=== PATIENT | female | born 1945 | race Caucasian/White ===

== ENCOUNTER → 2023-06-11 | Outpatient (CLI) | payer MEDICARE ==
[2023-06-11 11:09] VITALS: BP 152/80; PULSE 55; RESP 16; TEMP 98.1
--- NOTE | 2023-06-11 13:11 | P.PAINPG ---
PQRS Measure Charge Sheet Comment: HISTORY OF PRESENT ILLNESS: 78 yr old female as a referral from Dr Welsh presents today w severe and chronic LBP secondary to DDD, spondylosis and facet arthropathy without myelopathy for evaluation. Pt states pain level is provoked at 6/10 in intensity, constant, localized in the lower lumbar spine, achy in character w shooting pain towards the BLEs. Pain is provoked by laying on her sides, standing from a sitting position. Pain is alleviated by PT x 3-4 wks in Mar 2023, chiropractic treatments in 2020 which were discontinued due to therapist recommendations, sitting, repositioning and rest. Oswestry axial pain score at 17 . PMH: OA, HTN, Hyperlipidemia, Vitamin D Deficiency, GERD PSH: Tonsillectomy, Appendectomy, Cardiac Stents SH: No tobacco use, Occasional ETOH use, No illicit drug use FH: Non contributory All: See list Meds: See list REVIEW OF ORGAN SYSTEMS: CONSTITUTIONAL: No fevers or chills. No recent weight loss. NEUROLOGICAL: + numbness and tingling along the distal extremities. No seizure disorders or headaches. MUSCULOSKELETAL: + pain PSYCHIATRIC: Denies current depression or suicidal thoughts. Physical Examinations : Constitutional : Cooperative , not in acute distress . Neurologic : Cranial nerve II to XII intact. No focal neurological deficits. Psychiatric : alert & oriented x 3. Matching mood & appropriate affect. Judgment & insight intact. Musculoskeletal : Cervical Spine Motor strength in the deltoid and biceps: Normal right side. Normal Left side Motor strength biceps and the wrist extensors: Normal right side . Normal left side Motor strength in the triceps muscle: Normal right side. Normal left side Deep tendon reflexes: Normal at the biceps. Normal at Brachioradialis. Normal at triceps Vertebral body tenderness to deep palpation over Cervical facet loading test: positive bilaterally Spurling test: positive bilaterally Neck distraction test: positive bilaterally Neisha sign: positive bilaterally Lumbar spine Motor strength lower extremities ,thigh and legs 5/5 Right side , 5/5 Left side Deep tendon reflexes : Normal Knee Jerk. Normal Ankle Jerk Vertebral body tenderness over L4 Pedroza Test positive Lumbar facet Loading Test: positive Right / positive Left Range of motion of the lumbar spine Flexion 30 degrees, extension 10 degrees Straight Leg Raise test: Left/ Right positive at 35 degrees Scotty test: positive right / positive left. Severe tenderness over the Sacroiliac joint on the Right / Left sides Juaquin test: positive bilaterally Seated flexion test: positive bilaterally. Sacral spine : Severe tenderness over the Sacroiliac joint: right side / left side Range of motion: Flexion of the lumbar spine <60 degrees Range of motion: Extension of the lumbar spine <20 degrees Gaenslen's Test positive Joey's Test positive Scotty test: positive right side / left side Thigh Thrust Test Sacral Thrust Test Imaging: MRI noncontrast of the lumbar spine from 04/16/23 reviewed Assessment/ Plan : Lumbar anterolisthesis Recommendation of JOSIE L4-L5 #1. May need a series of injections for optimal pain relief. Risks, benefits of procedure discussed and patient verbalized understanding. Admits to aspirin or anti- coagulant use or medical history of diabetes. Protocol for discontinuation/ continuation of medications krish procedure discussed. Minimal anesthesia provided, if clinically indicated, consisting of Versed and Fentanyl. All questions answered. I have spent greater than 30 minutes on patient care today. Dr Espinoza was available by phone for the evaluation of this patient. The time was used to review the medical records including relevant urine studies and Prescription history (MAPs), review of the available imaging, evaluation and examination of the patient, coordination of care with the medical staff and if applicable referring physicians, as well as creation of the medical record Controlled Substance Measures - Controlled Substance Measures Is patient prescribed a controlled substance at discharge?: No
== END ==
LOC: PNWHC3 10:21
PROVIDERS: ATTEND Specialist
DX: M51.15 Intervertebral disc disorders with radiculopathy, thoracolumbar region (principal); M43.16 Spondylolisthesis, lumbar region; M19.90 Unspecified osteoarthritis, unspecified site; I10 Essential (primary) hypertension; E78.5 Hyperlipidemia, unspecified; M54.50 Low back pain, unspecified; K21.9 Gastro-esophageal reflux disease without esophagitis; Z88.5 Allergy status to narcotic agent; Z79.82 Long term (current) use of aspirin; Z79.899 Other long term (current) drug therapy
CPT/HCPCS: 99211

== ENCOUNTER 2023-06-30 12:38 | Day surgery (SDC) | payer MEDICARE ==
[2023-06-29 13:52] VITALS: BMI 35.4
[2023-06-30] MEDS ORDERED: LACTATED RINGERS 1,000 ML IV SCH (13:09)
[2023-06-30 13:18] VITALS: TEMP 97
[2023-06-30 13:25] LABS: Glucose,Whole Blood 93 mg/dL (70-110)
[2023-06-30] MEDS ORDERED: IOPAMIDOL M200 10 ML VIAL ONE (13:30)
[2023-06-30] MEDS ORDERED: methylPREDNISolone ACETATE 40 MG/ML 1 ML VIAL ONE (13:30)
--- NOTE | 2023-06-30 13:36 | P.PCN ---
Date of Procedure: 06/30/23 Procedure(s) Performed: PREOPERATIVE DIAGNOSIS: 1- Lumbar Degenerative Disc Diseases 2-Lumbar spondylosis with Facet arthropathy without myelopathy. POSTOPERATIVE DIAGNOSIS: 1-lumbar degenerative disc disease. 2-lumbar spondylosis with facet arthropathy without myelopathy. PROCEDURE 1. Lumbar epidural steroid injection under fluoroscopic guidance at the L4-5 level. (Fluoroscopy imaging was available in radiology department) 2. Lumbar epidurogram. ANESTHESIA: Lidocaine 1% 3 and then only. EBL: Minimal PROCEDURE INDICATION: The patient with low back pain and radiculitis symptoms unresponsive to conservative treatment. Fluoroscopy was used to optimize visualization of the needle placement and to maximize safety. PROCEDURE DESCRIPTION / TECHNIQUE: The patient was seen and identified in the preoperative area. Risks, benefits, complications including but not limited to infections ,bleeding ,allergic reaction to the medications ,nerve damage and not complete pain releife , and alternatives were discussed with the patient. The patient agreed to proceed with the procedure and signed the consent, and vital signs were stable. Patient was taken to the OR and time out was completed. The patient was placed in the prone position on procedure table and a pillow was placed under the abdomen to reduce lumbar lordosis. The lumbosacral area was prepped and draped in the usual sterile fashion.ere closely monitored during the procedure. Vital signs was monitered during the entire procedure. Using anterior-posterior fluoroscopy, the L4-5 interlaminar space was identified and the skin over this site was marked and then infiltrated with 1% lidocaine subcutaneously. Subsequently, a 20-gauge Tuohy epidural needle was inserted and advanced toward the epidural space using the ``Loss of resistance technique and guided by AP and lateral fluoroscopy. The correct needle position in the epidural space was verified with the injection of 2 mL of the water soluble contrast dye Isovue 200 contrast and observing an excellent epidurogram with the epidural spread of the dye, after negative aspiration for blood and CSF and in the absence of paresthesias. Again after negative aspiration, a 6 ml mixture containing 40 mg of Depo-medrol ( Preservetive Free ), and 2 ml of preservative free Normal Saline, and 2 ml of preservative free lidocaine 1% solution was injected and a washout of epidurogram was seen. Needle was withdrawn intact, skin was cleansed, and bandages were applied. COMPLICATIONS: None DISPOSITION / PLANS: The patient was placed in a supine position and transferred to the recovery area in a stable condition for observation. There was no benedicto dence of lower extremity motor or sensory deficit after the procedure. Patient was discharged from the recovery room after meeting discharge criteria. Home discharge instructions were given to the patient by the staff. The patient was reexamined prior to discharge. The patient will schedule a follow up in the clinic in 2-4 weeks.
[2023-06-30 13:42] VITALS: PULSE 58; RESP 14
[2023-06-30 13:55] VITALS: BP 153/85
--- NOTE | 2023-06-30 19:53 | FL ---
Intraoperative/procedural fluoroscopic services were provided. Total fluoroscopy time is 3.1 seconds with a total of 2 submitted images to PACS. Please see the operative/procedural note for further deta ils. DAP: [id number] mGym2
== END 2023-06-30 14:10 | disposition home or self-care (01) ==
LOC: ORPAIN 12:38
PROVIDERS: ATTEND Specialist
DX: M51.16 Intervertebral disc disorders with radiculopathy, lumbar region (principal); M47.26 Other spondylosis with radiculopathy, lumbar region; Z88.5 Allergy status to narcotic agent; Z88.8 Allergy status to other drugs, medicaments and biological substances; Z88.6 Allergy status to analgesic agent; Z79.82 Long term (current) use of aspirin
CPT/HCPCS: 62323; J1030; Q9966

== ENCOUNTER → 2023-07-22 | Outpatient (CLI) | payer MEDICARE ==
[2023-07-22 10:32] VITALS: BP 115/76; PULSE 53; RESP 16
--- NOTE | 2023-07-22 14:41 | P.PAINPG ---
PQRS Measure Charge Sheet Comment: HISTORY OF PRESENT ILLNESS: 78 yr old female presents today w severe and chronic LBP secondary to DDD, spondylosis and facet arthropathy without myelopathy for evaluation s/p JOSIE L4- L5 #1. Pt states she experienced 10% pain relief x 3 days s/p procedure. Pt states pain level is provoked at 8/10 in intensity, constant, localized in the lower lumbar spine, achy in character w shooting pain towards the BLEs. Pain is provoked standing from a sitting position. Pain is alleviated by PT x 3-4 wks in Mar 2023, chiropractic treatments in 2020 which were discontinued due to therapist recommendations, medications, CBD topical, sitting, repositioning and rest. Oswestry axial pain score at 12. Interventional procedures include JOSIE L4-L5 x1 Medications include Tyl REVIEW OF ORGAN SYSTEMS: CONSTITUTIONAL: No fevers or chills. No recent weight loss. NEUROLOGICAL: + numbness and tingling along the distal extremities. No seizure disorders or headaches. MUSCULOSKELETAL: + pain PSYCHIATRIC: Denies current depression or suicidal thoughts. Physical Examinations : Constitutional : Cooperative , not in acute distress . Neurologic : Cranial nerve II to XII intact. No focal neurological deficits. Psychiatric : alert & oriented x 3. Matching mood & appropriate affect. Judgment & insight intact. Musculoskeletal : Cervical Spine Motor strength in the deltoid and biceps: Normal right side. Normal Left side Motor strength biceps and the wrist extensors: Normal right side . Normal left side Motor strength in the triceps muscle: Normal right side. Normal left side Deep tendon reflexes: Normal at the biceps. Normal at Brachioradialis. Normal at triceps Vertebral body tenderness to deep palpation over Cervical facet loading test: positive bilaterally Spurling test: positive bilaterally Neck distraction test: positive bilat erally Neisha sign: positive bilaterally Lumbar spine Motor strength lower extremities ,thigh and legs 5/5 Right side , 5/5 Left side Deep tendon reflexes : Normal Knee Jerk. Normal Ankle Jerk Vertebral body tenderness Pedroza Test positive Lumbar facet Loading Test: positive Right / positive Left over BL L4-L5, L5-S1 Range of motion of the lumbar spine Flexion 30 degrees, extension 10 degrees Straight Leg Raise test: Left/ Right positive at 35 degrees Scotty test: positive right / positive left. Severe tenderness over the Sacroiliac joint on the Right / Left sides Gaenslen test: positive bilaterally Seated flexion test: positive bilaterally. Sacral spine : Severe tenderness over the Sacroiliac joint: right side / left side Range of motion: Flexion of the lumbar spine <60 degrees Range of motion: Extension of the lumbar spine <20 degrees Gaenslen's Test positive Joey's Test positive Scotty test: positive right side / left side Thigh Thrust Test Sacral Thrust Test Imaging: MRI noncontrast of the lumbar spine from 04/16/23 reviewed Assessment/ Plan : Lumbar anterolisthesis Recommendation of BL MBB L4-L5, L5-S1 #1. May need a series of injections, up until RFA, for optimal pain relief. Risks, benefits of procedure discussed and p atient verbalized understanding. Admits to aspirin or anti- coagulant use or medical history of diabetes. Protocol for discontinuation/ continuation of medications krish procedure discussed. Minimal anesthesia provided, if clinically indicated, consisting of Versed and Fentanyl. All questions answered. I have spent greater than 30 minutes on patient care today. Dr Espinoza was available by phone for the evaluation of this patient. The time was used to review the medical records including relevant urine studies and Prescription history (MAPs), review of the available imaging, evaluation and examination of the patient, coordination of care with the medical staff and if applicable referring physicians, as well as creation of the medical record PQRS Narrative: Hx Alcohol Use (MH) No Home Medications: Ambulatory Orders Acetaminophen [Tylenol Extra Strength] 500 mg PO DIRECTED PRN 06/11/23 Aspirin [[place] Aspirin EC] 81 mg PO DAILY 06/11/23 Atorvastatin [Lipitor] 80 mg PO DAILY 06/11/23 Calcium Carbonate/Vitamin D3 [Caltrate 600 Plus D3 20 Mcg (800 Iu)] 1 each PO BID 06/11/23 Ezetimibe [Zetia] 10 mg PO DAILY 06/11/23 L.acidoph,Paracasei, B.lactis [Probiotic] 1 each PO DAILY 06/11/23 Losartan Potassium 100 mg PO DAILY 06/11/23 Metoprolol Tartrate [Lopressor] 100 mg PO BID 06/11/23 Omeprazole 20 mg PO BID 06/11/23 Potassium Chloride 10 meq PO DAILY 06/11/23 Ubidecarenone [Co Q-10] 100 mg PO BID 06/11/23 Zinc Gluconate [Zinc] 50 mg PO DAILY 06/11/23 diazePAM 10 mg PO HS PRN 06/11/23 hydroCHLOROthiazide 25 mg PO DAILY 06/11/23 Psyllium Husk [Metamucil] 0.4 gm PO DAILY 06/29/23 Controlled Substance Measures - Controlled Substance Measures Is patient prescribed a controlled substance at discharge?: No
== END ==
LOC: PNWHC3 09:56
PROVIDERS: ATTEND Specialist
DX: M43.16 Spondylolisthesis, lumbar region (principal); Z79.82 Long term (current) use of aspirin; Z88.5 Allergy status to narcotic agent; Z88.8 Allergy status to other drugs, medicaments and biological substances
CPT/HCPCS: 99211

== ENCOUNTER 2023-08-06 09:13 | Day surgery (SDC) | payer MEDICARE ==
[2023-08-03 11:59] VITALS: BMI 35.1
[~2023-08-06 09:13] MED LIST: LACTATED RINGERS 1,000 ML IV SCH
[2023-08-06] MEDS ORDERED: LACTATED RINGERS 1,000 ML IV ONE (09:47)
[2023-08-06 09:55] VITALS: TEMP 97.5
[2023-08-06 10:01] LABS: Glucose,Whole Blood 104 mg/dL (70-110)
[2023-08-06] MEDS ORDERED: ROPIVACAINE 5MG/ML 20ML VIAL ONE (10:39)
[2023-08-06] MEDS ORDERED: methylPREDNISolone ACETATE 40 MG/ML 1 ML VIAL ONE (10:39)
[2023-08-06] MEDS ORDERED: MIDAZOLAM 2 MG/2 ML VIAL ONE (10:39)
--- NOTE | 2023-08-06 10:53 | P.PCN ---
Date of Procedure: 08/06/23 Procedure(s) Performed: PREOPERATIVE DIAGNOSIS : 1- Lumbar spondylosis with Facet Arthropathy without myelopathy . 2- Lumber degenerative disc disease POSTOPERATIVE DIAGNOSIS: 1- Lumbar spondylosis with Facet Arthropathy without myelopathy . 2- Lumber degenerative disc disease PROCEDURE: Diagnostic bilateral L3 , L4 , and L5 medial branch block under fluoroscopy guidance(fluoroscopy images available in the radiology Department ) ( To target the facet joint between Bilateral L4- 5 , and L5-S1 )#1st ANESTHESIA:moderate sedation with intravenous Versed 1 mg . ( sedation start time 1039 ,end time 1050 ) EBL: Minimal COMPLICATION: None PROCEDURE INDICATION: Chronic low back pain secondary to Facet arthropathy unresponsive to conservative treatment. PROCEDURE DESCRIPTION: the patient was seen and identified in the preop holding area , risks and benefits and possible complications of the procedure and alternative were discussed with the patient, and the patient agreed to proceed with the procedure and signed the consent and vital signs monitored during the procedure and fluoroscopy was used to maximize the benefit and accuracy of the needle placement, and sedation was given to decrease patient anxiety, patient was taken to the procedure room and placed in prone position vital signs monitored in the back prepped with chlorhexidine X3 then under strict sterile technique using a right oblique fluoroscopy ,the junction of the transverse process and the superior articulating process of the right L3 , L4 , and L5 vertebra which corresponding to the fluoroscopy image of the eye of the Carlos dog on the block side for the medial branches and subsequently , after local infiltration of skin and subcu tissuies with Ropivacaine 0.5 % , one mL at each level ,then 22-gauge Quincke-type needles , 3 needle was used , each one of them placed at the junction of the base of the transverse process and the superior articular process at the appropriate level, and the needle was advanced until the periosteum contacted, needle placement confirmed with AP oblique and lateral view and after appropriate needle placement confirmed, and after negative aspiration for heme and CSF and there was no paresthesia 1-1/2 mL of Ropivacaine 0.5% mixed with 20 mg Depo-Medrol , then half mL injected at each level after negative aspiration the needle subsequently removed and the same procedure repeated for the left side at left side at L3 , L4 and L5 levels. At the end of the procedure and the needles removed and a bandage applied after the skin was cleaned the cleaning solution patient taken to recovery room in stable condition and monitors in the recovery room for 20-30 minutes and discharged home in stable condition after discharge criteria met and patient sara l follow up with the pain clinic in 2-4 weeks
[2023-08-06] MEDS ORDERED: IV FLUID CONTINUATION 400 ML IV ONE (10:56)
[2023-08-06 11:17] VITALS: RESP 16
[2023-08-06 11:38] VITALS: BP 123/61; PULSE 55
--- NOTE | 2023-08-06 11:54 | FL ---
Intraoperative/procedural fluoroscopic services were provided. Total fluoroscopy time is 14.1 seconds with a total of 4 submitted images to PACS. Please see the operative/procedural note for further det ails. DAP: [id number] mGym2
== END 2023-08-06 11:32 | disposition home or self-care (01) ==
LOC: ORPAIN 09:13
PROVIDERS: ATTEND Specialist
DX: M47.816 Spondylosis without myelopathy or radiculopathy, lumbar region (principal); M51.36 Other intervertebral disc degeneration, lumbar region; G89.29 Other chronic pain; Z88.5 Allergy status to narcotic agent; Z88.8 Allergy status to other drugs, medicaments and biological substances
CPT/HCPCS: 64494 ×2; 64493; J2250; J1030; J2795; 99152

== ENCOUNTER → 2023-08-26 | Outpatient (CLI) | payer MEDICARE ==
[2023-08-26 09:50] VITALS: BP 160/76; PULSE 52; RESP 16; TEMP 98
--- NOTE | 2023-08-26 14:54 | P.PAINPG ---
PQRS Measure Charge Sheet Comment: HISTORY OF PRESENT ILLNESS: 78 yr old female presents today w severe and chronic LBP secondary to DDD, spondylosis and facet arthropathy without myelopathy for evaluation s/p BL MBB L4-L5, L5-S1 #1. Pt states she experienced 98 % pain relief x 5 days s/p procedure. Pt states pain level is provoked at 8/10 in intensity, constant, predominantly axial, localized in the lower lumbar spine, achy in character w shooting pain towards the BL hips, L knee and R knee/ ankle. Pain is provoked standing from a sitting position. Pain is alleviated by PT x 3-4 wks in Mar 2023, chiropractic treatments in 2020 which were discontinued due to therapist recommendations, medications, CBD topical, sitting, repositioning and rest. Oswestry axial pain score at 12. Interventional procedures include JOISE L4-L5 x1, BL MBB L3-L5 x1 Medications include Tyl REVIEW OF ORGAN SYSTEMS: CONSTITUTIONAL: No fevers or chills. No recent weight loss. NEUROLOGICAL: + numbness and tingling along the distal extremities. No seizure disorders or headaches. MUSCULOSKELETAL: + pain PSYCHIATRIC: Denies current depression or suicidal thoughts. Physical Examinations : Constitutional : Cooperative , not in acute distress . Neurologic : Cranial nerve II to XII intact. No focal neurological deficits. Psychiatric : alert & oriented x 3. Matching mood & appropriate affect. Judgment & insight intact. Musculoskeletal : Cervical Spine Motor strength in the deltoid and biceps: Normal right side. Normal Left side Motor strength biceps and the wrist extensors: Normal right side . Normal left side Motor strength in the triceps muscle: Normal right side. Normal left side Deep tendon reflexes: Normal at the biceps. Normal at Brachioradialis. Normal at triceps Vertebral body tenderness to deep palpation over Cervical facet loading test: positive bilaterally Spurling test: positive bilaterally Neck distraction test: positive bilaterally Neisha sign: positive bilaterally Lumbar spine Motor strength lower extremities ,thigh and legs 5/5 Right side , 5/5 Left side Deep tendon reflexes : Normal Knee Jerk. Normal Ankle Jerk Vertebral body tenderness Pedroza Test positive Lumbar facet Loading Test: positive Right / positive Left over BL L4-L5, L5-S1 Range of motion of the lumbar spine Flexion 30 degrees, extension 10 degrees Straight Leg Raise test: Left/ Right positive at 35 degrees Scotty test: positive right / positive left. Severe tenderness over the Sacroiliac joint on the Right / Left sides Gaenslen test: positive bilaterally Seated flexion test: positive bilaterally. Sacral spine : Severe tenderness over the Sacroiliac joint: right side / left side Range of motion: Flexion of the lumbar spine <60 degrees Range of motion: Extension of the lumbar spine <20 degrees Gaenslen's Test positive Joey's Test positive Scotty test: positive right side / left side Thigh Thrust Test Sacral Thrust Test Imaging: MRI noncontrast of the lumbar spine from 04/16/23 reviewed Assessment/ Plan : Lumbar anterolisthesis Recommendation of BL MBB L4-L5, L5-S1 #2. May need a series of injections, up until RFA, for optimal pain relief. Risks, benefits of procedure discussed and patient verbalized understanding. Admits to aspirin or anti- coagulant use or medical history of diabetes. Protocol for discontinuation/ continuation of medications krish procedure discussed. Minimal anesthesia provided, if clinically indicated, consisting of Versed and Fentanyl. All questions answered. I have spent greater than 30 minutes on patient care today. Dr Espinoza was available by phone for the evaluation of this patient. The time was used to review the medical records including relevant urine studies and Prescription history (MAPs), review of the available imaging, evaluation and examination of the patient, coordination of care with the medical staff and if applicable referring physicians, as well as creation of the medical record PQRS Narrative: Hx Alcohol Use (MH) No Home Medications: Ambulatory Orders Acetaminophen [Tylenol Extra Strength] 500 mg PO DIRECTED PRN 06/11/23 Aspirin [[place] Aspirin EC] 81 mg PO DAILY 06/11/23 Atorvastatin [Lipitor] 80 mg PO DAILY 06/11/23 Calcium Carbonate/Vitamin D3 [Caltrate 600 Plus D3 20 Mcg (800 Iu)] 1 each PO BID 06/11/23 Ezetimibe [Zetia] 10 mg PO DAILY 06/11/23 L.acidoph,Paracasei, B.lactis [Probiotic] 1 each PO DAILY 06/11/23 Losartan Potassium 100 mg PO DAILY 06/11/23 Metoprolol Tartrate [Lopressor] 100 mg PO BID 06/11/23 Potassium Chloride 10 meq PO DAILY 06/11/23 Ubidecarenone [Co Q-10] 100 mg PO BID 06/11/23 Zinc Gluconate [Zinc] 50 mg PO DAILY 06/11/23 diazePAM 10 mg PO HS PRN 06/11/23 hydroCHLOROthiazide 25 mg PO DAILY 06/11/23 Psyllium Husk [Metamucil] 0.4 gm PO DAILY 06/29/23 Esomeprazole Magnesium [NexIUM] 40 mg PO DAILY 08/03/23 Controlled Substance Measures - Controlled Substance Measures Is patient prescribed a controlled substance at discharge?: No
== END ==
LOC: PNWHC3 09:06
PROVIDERS: ATTEND Specialist
DX: M43.16 Spondylolisthesis, lumbar region (principal); Z79.82 Long term (current) use of aspirin; Z88.5 Allergy status to narcotic agent; Z88.8 Allergy status to other drugs, medicaments and biological substances
CPT/HCPCS: 99211

== ENCOUNTER 2023-09-17 10:53 | Day surgery (SDC) | payer MEDICARE ==
[2023-09-14 11:28] VITALS: BMI 35.4
[2023-09-17 11:31] VITALS: RESP 16; TEMP 98.5
[2023-09-17 11:33] LABS: Glucose,Whole Blood 105 mg/dL (70-110)
[2023-09-17] MEDS ORDERED: methylPREDNISolone ACETATE 40 MG/ML 1 ML VIAL ONE (12:03)
[2023-09-17] MEDS ORDERED: MIDAZOLAM 2 MG/2 ML VIAL ONE (12:03)
[2023-09-17] MEDS ORDERED: ROPIVACAINE 5MG/ML 20ML VIAL ONE (12:03)
--- NOTE | 2023-09-17 12:25 | P.PCN ---
Date of Procedure: 09/17/23 Procedure(s) Performed: PREOPERATIVE DIAGNOSIS : 1- Lumbar spondylosis with Facet Arthropathy without myelopathy . 2- Lumber degenerative disc disease POSTOPERATIVE DIAGNOSIS: 1- Lumbar spondylosis with Facet Arthropathy without myelopathy . 2- Lumber degenerative disc disease PROCEDURE: Diagnostic bilateral L3 , L4 , and L5 medial branch block under fluoroscopy guidance(fluoroscopy images available in the radiology Department ) ( To target the facet joint between Bilateral L4- 5 , and L5-S1 )#2nd ANESTHESIA:moderate sedation with intravenous Versed 2 mg . ( sedation start time 12:09 ,end time 12:22 ) EBL: Minimal COMPLICATION: None PROCEDURE INDICATION: Chronic low back pain secondary to Facet arthropathy unresponsive to conservative treatment. PROCEDURE DESCRIPTION: the patient was seen and identified in the preop holding area , risks and benefits and possible complications of the procedure and alternative were discussed with the patient, and the patient agreed to proceed with the procedure and signed the consent and vital signs monitored during the procedure and fluoroscopy was used to maximize the benefit and accuracy of the needle placement, and sedation was given to decrease patient anxiety, patient was taken to the procedure room and placed in prone position vital signs monitored in the back prepped with chlorhexidine X3 then under strict sterile technique using a right oblique fluoroscopy ,the junction of the transverse process and the superior articulating process of the right L3 , L4 , and L5 vertebra which corresponding to the fluoroscopy image of the eye of the Carlos dog on the block side for the medial branches and subsequently , after local infiltration of skin and subcu tissuies with Ropivacaine 0.5 % , one mL at each level ,then 22-gauge Quincke-type needles , 3 needle was used , each one of them placed at the junction of the base of the transverse process and the superior articular process at the appropriate level, and the needle was advanced until the periosteum contacted, needle placement confirmed with AP oblique and lateral view and after appropriate needle placement confirmed, and after negative aspiration for heme and CSF and there was no paresthesia 1-1/2 mL of Ropivacaine 0.5% mixed with 20 mg Depo-Medrol , then half mL injected at each level after negative aspiration the needle subsequently removed and the same procedure repeated for the left side at left side at L3 , L4 and L5 levels. At the end of the procedure and the needles removed and a bandage applied after the skin was cleaned the cleaning solution patient taken to recovery room in stable condition and monitors in the recovery room for 20-30 minutes and discharged home in stable condition after discharge criteria met and patient will follow up with the pain clinic in 2-4 weeks
[2023-09-17] MEDS ORDERED: IV FLUID CONTINUATION 700 ML IV ONE (12:30)
--- NOTE | 2023-09-17 13:01 | FL ---
Fluoroscopy History: FACET BILATERAL LUMBAR FACETS, 3 LEVELS, 9 SEC, .[id number] DAP
[2023-09-17 13:03] VITALS: BP 140/50; PULSE 61
== END 2023-09-17 13:09 | disposition home or self-care (01) ==
LOC: ORPAIN 10:53
PROVIDERS: ATTEND Specialist
DX: M51.36 Other intervertebral disc degeneration, lumbar region (principal); M47.816 Spondylosis without myelopathy or radiculopathy, lumbar region; G89.29 Other chronic pain; E11.9 Type 2 diabetes mellitus without complications; Z79.82 Long term (current) use of aspirin; Z88.5 Allergy status to narcotic agent
CPT/HCPCS: 64493; 64494 ×2; 99152; J2250; J1030; J2795

== ENCOUNTER → 2023-10-21 | Outpatient (CLI) | payer MEDICARE ==
[2023-10-21 10:56] VITALS: BP 134/76; PULSE 51; RESP 14; TEMP 97.6
--- NOTE | 2023-10-21 14:27 | P.PAINPG ---
PQRS Measure Charge Sheet Comment: HISTORY OF PRESENT ILLNESS: A 78 yr old female presents today w severe and chronic LBP secondary to DDD, spondylosis and facet arthropathy without myelopathy for evaluation s/p BL MBB L4-L5, L5-S1 #2. Pt states she experienced 80% pain relief x 2 wks s/p procedure. Pt states pain level is provoked at 8/10 in intensity, constant, predominantly axial, localized in the lower lumbar spine, achy in character w occasional shooting pain towards the BL hips, L knee and R knee/ ankle. Pain is provoked standing from a sitting position. Pain is alleviated by PT x 3-4 wks in Mar 2023, chiropractic treatments in 2020 which were discontinued due to therapist recommendations, injections, medications, CBD topical, sitting, repositioning and rest. Oswestry axial pain score at 11. Interventional procedures include JOSIE L4-L5 x1, BL MBB L3-L5 x2 Medications include Tyl REVIEW OF ORGAN SYSTEMS: CONSTITUTIONAL: No fevers or chills. No recent weight loss. NEUROLOGICAL: + numbness and tingling along the distal extremities. No seizure disorders or headaches. MUSCULOSKELETAL: + pain PSYCHIATRIC: Denies current depression or suicidal thoughts. Physical Examinations : Constitutional : Cooperative , not in acute distress . Neurologic : Cranial nerve II to XII intact. No focal neurological deficits. Psychiatric : alert & oriented x 3. Matching mood & appropriate affect. Judgment & insight intact. Musculoskeletal : Cervical Spine Motor strength in the deltoid and biceps: Normal right side. Normal Left side Motor strength biceps and the wrist extensors: Normal right side . Normal left side Motor strength in the triceps muscle: Normal right side. Normal left side Deep tendon reflexes: Normal at the biceps. Normal at Brachioradialis. Normal at triceps Vertebral body tenderness to deep palpation over Cervical facet loading test: positive bilaterally Spurling test: positive bilaterally Neck distraction test: positive bilaterally Neisha sign: positive bilaterally Lumbar spine Motor strength lower extremities ,thigh and legs 5/5 Right side , 5/5 Left side Deep tendon reflexes : Normal Knee Jerk. Normal Ankle Jerk Vertebral body tenderness Pedroza Test positive Lumbar facet Loading Test: positive Right / positive Left over BL L4-L5, L5-S1 Range of motion of the lumbar spine Flexion 30 degrees, extension 10 degrees Straight Leg Raise test: Left/ Right positive at 35 degrees Scotty test: positive right / positive left. Severe tenderness over the Sacroiliac joint on the Right / Left sides Gaenslen test: positive bilaterally Seated flexion test: positive bilaterally. Sacral spine : Severe tenderness over the Sacroiliac joint: right side / left side Range of motion: Flexion of the lumbar spine <60 degrees Range of motion: Extension of the lumbar spine <20 degrees Gaenslen's Test positive Joey's Test positive Scotty test: positive right side / left side Thigh Thrust Test Sacral Thrust Test Imaging: MRI noncontrast of the lumbar spine from 04/16/23 reviewed Assessment/ Plan : Lumbar anterolisthesis Recommendation of BL RFA L4-L5, L5-S1. Exhibited optimal pain relief w prior MBB procedures. Risks, benefits of procedure discussed and patient verbalized understanding. Admits to aspirin or anti- coagulant use or medical history of diabetes. Protocol for discontinuation/ continuation of medications krish procedure discussed. Minimal anesthesia provided, if clinically indicated, consisting of Versed and Fentanyl. All questions answered. I have spent greater than 30 minutes on patient care today. Dr Espinoza was available by phone for the evaluation of this patient. The time was used to review the medical records including relevant urine studies and Prescription history (MAPs), review of the available imaging, evaluation and examination of the patient, coordination of care with the medical staff and if applicable referring physicians, as well as creation of the medical record PQRS Narrative: Hx Alcohol Use (MH) No Home Medications: Ambulatory Orders Acetaminophen [Tylenol Extra Strength] 500 mg PO DIRECTED PRN 06/11/23 Aspirin [[place] Aspirin EC] 81 mg PO DAILY 06/11/23 Atorvastatin [Lipitor] 80 mg PO DAILY 06/11/23 Calcium Carbonate/Vitamin D3 [Caltrate 600 Plus D3 20 Mcg (800 Iu)] 1 each PO BID 06/11/23 Ezetimibe [Zetia] 10 mg PO DAILY 06/11/23 L.acidoph,Paracasei, B.lactis [Probiotic] 1 each PO DAILY 06/11/23 Losartan Potassium 100 mg PO DAILY 06/11/23 Metoprolol Tartrate [Lopressor] 100 mg PO BID 06/11/23 Potassium Chloride 10 meq PO DAILY 06/11/23 Ubidecarenone [Co Q-10] 100 mg PO DAILY 06/11/23 Zinc Gluconate [Zinc] 50 mg PO DAILY 06/11/23 diazePAM 10 mg PO DIRECTED PRN 06/11/23 hydroCHLOROthiazide 25 mg PO DAILY 06/11/23 Omeprazole 20 mg PO DAILY 09/14/23 Controlled Substance Measures - Controlled Substance Measures Is patient prescribed a controlled substance at discharge?: No
== END ==
LOC: PNWHC3 09:17
PROVIDERS: ATTEND Specialist
DX: M43.17 Spondylolisthesis, lumbosacral region (principal); Z88.5 Allergy status to narcotic agent; Z79.82 Long term (current) use of aspirin
CPT/HCPCS: 99211

== ENCOUNTER 2023-11-13 08:09 | Day surgery (SDC) | payer MEDICARE ==
[2023-11-13 08:40] VITALS: RESP 16; TEMP 97.3
[2023-11-13 08:45] LABS: Glucose,Whole Blood 112 mg/dL (70-110)
[2023-11-13] MEDS ORDERED: MIDAZOLAM 2 MG/2 ML VIAL ONE (09:47)
[2023-11-13] MEDS ORDERED: ROPIVACAINE 5MG/ML 20ML VIAL ONE (09:51)
--- NOTE | 2023-11-13 10:37 | P.PCN ---
Description of Procedure: Preprocedure diagnosis. 1. Lumbar spondylosis with facet joint arthropathy without myelopathy. 2. Lumbar degenerative disc disease. Procedure diagnosis. 1. Lumbar spondylosis with facet joint arthropathy without myelopathy. Space 2. Lumbar degenerative disc disease. Procedure.Bilateral radiofrequency thermocoagulation L3, L4 and L5 medial branch, with fluoroscopic guidance (fluoroscopy images are available in the radiology department) (to Denervate the facet joint at bilateral L4 5 and L5-S1 levels) Anesthesia. Monitored anesthesia care as per anesthesia department, In OR, continuous pulse ox, blood pressure, EKG and verbal communication was maintained. EBL minimal. Procedure indication. The patient with low back pain secondary to lumbar facet arthropathy who he had more than 50% relief of her pain with previous diagnostic lumbar medial branch block with local anesthetics. Discussed with the patient about the procedure, alternative treatment, possible complications which may include infection, bleeding, nerve damage, aggravation of pain, all of which could be permanent. Patient understands, all questions were answered. Patient signed consent and agreed to proceed with the procedure. Procedure description/technique. After getting consent, patient was taken to the OR and in prone position. The lumbar area was prepped and draped in the usual sterile fashion. After injecting 5 mL of plain 1% lidocaine subcutaneously, a 18-gauge 100 mm radiofrequency cannula with a 10 mm active tip was introduced under tunnel vision of the fluoroscope at the junction of the superior articular process with RIGHT ala of the sacrum. With slight oblique fluoroscope, after injecting 5 mL of plain 1% lidocaine subcutaneously, a 18- gauge 100 mm radiofrequency cannula with a 10 mm active tip was introduced under tunnel vision of the fluoroscope at the junction of the superior articular process with L5 transverse process and junction of the superior articular process with the L4 transverse process Each site then underwent sensory testing with 50 Hz and 0-1 V and motor testing at 2.5 Hz and 0-3 V with local stimulation but no radicular symptoms down the leg. Thereafter each sites underwent radiofrequency thermocoagulation at 80C for 90 seconds after injecting 1 mL of preservative-free 0.5% ropivacaine. Repeat radiofrequency ablation was done at each points after rotating the needle 180 with same setting . In exactly same way, LEFT sided RFA were done at the following 3 points. Junction of the superior articular process with left ala of the sacrum, junction of the superior articular process with the left L5 transverse process, junction of the superior articular process with left L4 transverse process after needle position confirmation by AP, oblique, lateral view of the fluoroscope, negative CSF negative blood negative paresthesia, sensory and motor stimulations followed by injection of 1 mL of 0.5% ropivacaine. Radiofrequency ablation settings where same as the other side, and second lesion was done after rotating the needle 180. RF needles were taken out. At the end of the procedure the skin was cleansed and Band-Aids were applied. Disposition . Patient tolerated the procedure well. No complication. She was placed in supine position and transferred to the recovery area in stable condition for observation and was discharged home from recovery room after meeting discharge criteria. Discharge instructions given to the patient by the staff. The patient were examined prior to discharge the patient will schedule a follow-up in the clinic in 2-4 weeks.
[2023-11-13] MEDS ORDERED: IV FLUID CONTINUATION 1,000 ML IV ONE (10:39)
[2023-11-13 11:20] VITALS: BP 141/73; PULSE 68
--- NOTE | 2023-11-13 11:20 | FL ---
EXAMINATION TYPE: FL guided pain mgmt statistic Intraoperative/procedural fluoroscopic services were provided. Total fluoroscopy time is 1 minute 14 seconds with a total of 4 submitted images to PACS. P keaton see the operative/procedural note for further details. DAP: 0.29936 Gycm2
== END 2023-11-13 11:10 | disposition home or self-care (01) ==
LOC: ORPAIN 08:09
PROVIDERS: ATTEND Pain Medicine Interventional Pain Medicine
DX: M47.816 Spondylosis without myelopathy or radiculopathy, lumbar region (principal); M51.36 Other intervertebral disc degeneration, lumbar region; I10 Essential (primary) hypertension; E78.5 Hyperlipidemia, unspecified; I25.10 Atherosclerotic heart disease of native coronary artery without angina pectoris; I25.2 Old myocardial infarction; G47.33 Obstructive sleep apnea (adult) (pediatric); E11.9 Type 2 diabetes mellitus without complications; M19.90 Unspecified osteoarthritis, unspecified site; K21.9 Gastro-esophageal reflux disease without esophagitis; Z95.5 Presence of coronary angioplasty implant and graft; Z79.82 Long term (current) use of aspirin; Z79.899 Other long term (current) drug therapy
CPT/HCPCS: 64635; 64636 ×2; J2250; J2795

== ENCOUNTER → 2023-12-09 | Outpatient (CLI) | payer MEDICARE ==
[2023-12-09 14:11] VITALS: BP 132/66; PULSE 99; RESP 15; TEMP 98.5
--- NOTE | 2023-12-09 14:50 | P.PAINPG ---
PQRS Measure Charge Sheet Comment: HISTORY OF PRESENT ILLNESS: A 78 yr old female presents today w severe and chronic LBP secondary to DDD, spondylosis and facet arthropathy without myelopathy for evaluation s/p BL RFA L4-L5, L5-S1. Pt states she experienced 75 % pain relief s/p procedure. Pt states pain level is provoked at 4/10 in intensity, constant, predominantly axial, localized in the lower lumbar spine, achy in character w occasional shooting pain towards the BL hips, L knee and R knee/ ankle. Pain is provoked standing from a sitting position. Pain is alleviated by PT x 3-4 wks in Mar 2023, chiropractic treatments in 2020 which were discontinued due to therapist recommendations, injections, medications, CBD topical, sitting, repositioning and rest. Oswestry axial pain score at 9. Interventional procedures include JOSIE L4-L5 x1, BL RFA L3-L5 (Oct 2023) Medications include Tyl REVIEW OF ORGAN SYSTEMS: CONSTITUTIONAL: No fevers or chills. No recent weight loss. NEUROLOGICAL: + numbness and tingling along the distal extremities. No seizure disorders or headaches. MUSCULOSKELETAL: + pain PSYCHIATRIC: Denies current depression or suicidal thoughts. Physical Examinations : Constitutional : Cooperative , not in acute distress . Neurologic : Cranial nerve II to XII intact. No focal neurological deficits. Psychiatric : alert & oriented x 3. Matching mood & appropriate affect. Judgment & insight intact. Musculoskeletal : Cervical Spine Motor strength in the deltoid and biceps: Normal right side. Normal Left side Motor strength biceps and the wrist extensors: Normal right side . Normal left side Motor strength in the triceps muscle: Normal right side. Normal left side Deep tendon reflexes: Normal at the biceps. Normal at Brachioradialis. Normal at triceps Vertebral body tenderness to deep palpation over Cervical facet loading test: positive bilaterally Spurling test: positive bilaterally Neck distraction test: positive bilaterally Neisha sign: positive bilaterally Lumbar spine Motor strength lower extremities ,thigh and legs 5/5 Right side , 5/5 Left side Deep tendon reflexes : Normal Knee Jerk. Normal Ankle Jerk Vertebral body tenderness Pedroza Test positive Lumbar facet Loading Test: positive Right / positive Left Range of motion of the lumbar spine Flexion 30 degrees, extension 10 degrees Straight Leg Raise test: Left/ Right positive at 35 degrees Scotty test: positive right / positive left. Severe tenderness over the Sacroiliac joint on the Right / Left sides Gaenslen test: positive bilaterally Seated flexion test: positive bilaterally. Sacral spine : Severe tenderness over the Sacroiliac joint: right side / left side Range of motion: Flexion of the lumbar spine <60 degrees Range of motion: Extension of the lumbar spine <20 degrees Gaenslen's Test positive Joey's Test positive Scotty test: positive right side / left side Thigh Thrust Test Sacral Thrust Test Imaging: MRI noncontrast of the lumbar spine from 04/16/23 reviewed Assessment/ Plan : Lumbar anterolisthesis Will manage residual pain and may RTC on an as needed basis. All questions answered. I have spent greater than 30 minutes on patient care today. Dr Espinoza was available by phone for the evaluation of this patient. The time was used to review the medical records including relevant urine studies and Prescription history (MAPs), review of the available imaging, evaluation and examination of the patient, coordination of care with the medical staff and if applicable referring physicians, as well as creation of the medical record PQRS Narrative: Hx Alcohol Use (MH) Yes: rare Home Medications: Ambulatory Orders Acetaminophen [Tylenol Extra Strength] 500 mg PO DIRECTED PRN 06/11/23 Aspirin [[place] Aspirin EC] 81 mg PO QAM 06/11/23 Atorvastatin [Lipitor] 80 mg PO HS 06/11/23 Calcium Carbonate/Vitamin D3 [Caltrate 600 Plus D3 20 Mcg (800 Iu)] 1 each PO BID 06/11/23 Ezetimibe [Zetia] 10 mg PO QAM 06/11/23 L.acidoph,Paracasei, B.lactis [Probiotic] 1 each PO DAILY 06/11/23 Losartan Potassium 100 mg PO QAM 06/11/23 Metoprolol Tartrate [Lopressor] 100 mg PO BID 06/11/23 Potassium Chloride 10 meq PO QAM 06/11/23 Ubidecarenone [Co Q-10] 100 mg PO HS 06/11/23 Zinc Gluconate [Zinc] 50 mg PO QAM 06/11/23 diazePAM 10 mg PO DIRECTED PRN 06/11/23 hydroCHLOROthiazide 25 mg PO QAM 06/11/23 Omeprazole 20 mg PO BID 09/14/23 Biotin [Jeld-Hdvi-Suorw] 10,000 mcg PO QAM 11/09/23 Fluticasone Propion/Salmeterol [Fluticasone-Salmeterol 250-50] 1 inhalation PO DAILY PRN 11/09/23 Controlled Substance Measures - Controlled Substance Measures Is patient prescribed a controlled substance at discharge?: No
== END ==
LOC: PNWHC3 13:02
PROVIDERS: ATTEND Specialist
DX: M43.16 Spondylolisthesis, lumbar region (principal); Z79.82 Long term (current) use of aspirin; Z88.5 Allergy status to narcotic agent; Z88.8 Allergy status to other drugs, medicaments and biological substances
CPT/HCPCS: 99211